=== PATIENT | male | born 1935 | race Caucasian/White ===

== ENCOUNTER 2021-02-01 18:37 | Emergency (ER) | payer OTHER ==
[~2021-02-01] VITALS: Ht 188 cm; Wt 81.7 kg
--- NOTE | ~2021-02-01 | EMS ---
[address] [address] EMS Patient Care Report Name: FELICIA BARRIOS Room #: DEP Bailey#: [id number] Admission: 02/01/21 Attend Phys: Discharge: 02/01/21 Date of : 35 Report #: [id number] THIS REPORT FOR: //name// Report Transmitted: 02/03/2021 22:56 EMS Care Summary [facility] MED-ACT Incident [id number] @ 02/01/2021 17:50 Incident Location [facility] [place] [address] Patient SOPHIE DUARTE Male, 83 Years 1937-03-16 Patient Address [address] [place] [address] Patient History Other, Patient Allergies No known allergies, Chief Complaint Cardiac arrest Disposition Transported No Lights/[place] Dispatch Reason Choking Transported To [facility] Narrative Dispatched to local restaurant on a choking. During response dispatched advised that this was now a cardiac arrest. Upon arrival pt found lying on floor with CPR in progress. HPI; Family and friends report that pt went unresponsive while at dinner and they believed he was choking and attempted abdominal thrusts without success. [address] [address] EMS Patient Care Report Name: FELICIA BARRIOS [facility] [id number] Admission: 02/01/21 Attend Phys: Discharge: 02/01/21 Date of : 35 Report #: [id number] Bystander CPR was started prior to our arrival and continued by MENDY and first responders. PRIMARY; Unresponsive, apneic and pulseless. SECONDARY; THROAT; Clear. No food found in oral cavity. TREATMENT; CPR continued and pt was ventilated with BVM. IV and igel was placed. After iGel it was noted a considerable amount of blood was in the throat and mouth and continuous suctions with big stick was used next to iGel. ETCO2 was attempted and one reading of 2 was obtained. Trouble shooting did not find reason for no reading. Lung sounds present to right side upper and lower. Chest rise present and no gastric sound heard on ventilations. Epi given per protocol as listed in flow chart. CPR changed to mechanical device. TRANSPORT; Decision made to transport due to location of patient. Pt lifted to stretcher and secured with all straps. Pt transported without change in condition and released to ED staff in room 12. Initial Vitals @18:01 @18:90EeCN8: 2, @17:57 @17:59 @18:18 @18:17P: 51, @18:27 @18:11WiSQ1: 0, @18:15 @PTAP: 0,GCS: 3, @18:31P: 0,R: 0,GCS: 3, Assessments @17:55MENTAL:Unresponsive,SKIN:Cyanotic,Pale,HEENT:LUNG SOUNDS:ABDOMEN:PELVIS//GI:EXTREMITIES:PULSE:NEURO: Impression Cardiac arrest Procedures @18:22Epinephrine 1:10 - 1 Milligrams (mg) - Intravenous (IV)Response: Unchanged@18:01Epinephrine 1:10 - 1 Milligrams (mg) - Intravenous (IV)Response: Unchanged@18:06Epinephrine 1:10 - 1 Milligrams (mg) - Intravenous (IV)Response: Unchanged@17:56Normal Saline (.9% NaCl) 400cc (18 ga) Site: Antecubital-LeftResponse: UnchangedSucceeded@17:57Epinephrine 1:10 - 1 [facility] [address] [place] [address] EMS Patient Care Report Name: FELICIA BARRIOS Room #: [facility] Bailey#: [id number] Admission: 02/01/21 Attend Phys: Discharge: 02/01/21 Date of : 35 Report #: [id number] Milligrams (mg) - Intravenous (IV)Response: Unchanged@18:15Epinephrine 1:10 - 1 Milligrams (mg) - Intravenous (IV)Response: Unchanged@PTAResponse: Unchanged@18:10Epinephrine 1:10 - 1 Milligrams (mg) - Intravenous (IV)Response: Unchanged@18:27Epinephrine 1:10 - 1 Milligrams (mg) - Intravenous (IV)Response: Unchanged@PTAOxygen FlowRate: 15 Device: Bag Valve Mask (BVM) Response: UnchangedSucceeded@17:56iGEL Complications: None,Response: UnchangedSucceeded@17:58Suction Response: UnchangedSucceeded@18:16Response: UnchangedSucceeded Timeline PHOTOGRAPHIC MACHINE OPERATOR,Response: Unchanged PHOTOGRAPHIC MACHINE OPERATOR,Oxygen FlowRate: 15 Device: Bag Valve Mask (BVM) Response: UnchangedSucceeded, PHOTOGRAPHIC MACHINE OPERATOR,BP: / M,PULSE: 0,RR: R,SPO2: Ox,ETCO2: ,BG: ,PAIN: ,GCS: 3, 17:48,Call Received 17:48,Psap Call 17:50,Dispatched 17:50,En Route 17:53,On Scene 17:54,At Patient 17:56,iGEL Complications: None,,Response: UnchangedSucceeded, 17:56,Normal Saline (.9% NaCl) 400cc 18 ga Site: Antecubital-Left,Response: UnchangedSucceeded, 17:57,BP: / M,PULSE: ,RR: R,SPO2: Ox,ETCO2: ,BG: ,PAIN: ,GCS: , 17:57,Epinephrine 1:10 - 1 Milligrams (mg) - Intravenous (IV),Response: Unchanged 17:58,Suction Response: UnchangedSucceeded, 17:59,BP: / M,PULSE: ,RR: R,SPO2: Ox,ETCO2: ,BG: ,PAIN: ,GCS: , 18:01,Epinephrine 1:10 - 1 Milligrams (mg) - Intravenous (IV),Response: Unchanged 18:01,BP: / M,PULSE: ,RR: R,SPO2: Ox,ETCO2: ,BG: ,PAIN: ,GCS: , 18:06,Epinephrine 1:10 - 1 Milligrams (mg) - Intravenous (IV),Response: Unchanged 18:06,BP: / M,PULSE: ,RR: R,SPO2: Ox,ETCO2: 2 ,BG: ,PAIN: ,GCS: , 18:08,BP: / M,PULSE: ,RR: R,SPO2: Ox,ETCO2: 0 ,BG: ,PAIN: ,GCS: , 18:10,Epinephrine 1:10 - 1 Milligrams (mg) - Intravenous (IV),Response: Unchanged 18:15,Epinephrine 1:10 - 1 Milligrams (mg) - Intravenous (IV),Response: Unchanged 18:15,BP: / M,PULSE: ,RR: R,SPO2: Ox,ETCO2: ,BG: ,PAIN: ,GCS: , 18:16,Response: UnchangedSucceeded, 18:17,BP: / M,PULSE: 51,RR: R,SPO2: Ox,ETCO2: ,BG: ,PAIN: ,GCS: , 18:18,BP: / M,PULSE: ,RR: R,SPO2: Ox,ETCO2: ,BG: ,PAIN: ,GCS: , 18:22,Epinephrine 1:10 - 1 Milligrams (mg) - Intravenous (IV),Response: Unchanged 18:23,Depart Scene [facility] [address] [place] [address] EMS Patient Care Report Name: FELICIA BARRIOS Room #: DEP [facility]#: [id number] Admission: 02/01/21 Attend Phys: Discharge: 02/01/21 Date of : 35 Report #: [id number] 18:27,BP: / M,PULSE: ,RR: R,SPO2: Ox,ETCO2: ,BG: ,PAIN: ,GCS: , 18:27,Epinephrine 1:10 - 1 Milligrams (mg) - Intravenous (IV),Response: Unchanged 18:31,BP: / M,PULSE: 0,RR: 0 R,SPO2: Ox,ETCO2: ,BG: ,PAIN: ,GCS: 3, 18:32,At Destination 19:17,Call Closed Disclaimer v1.1 Copyright 2020 [employer] This EMS Care Summary contains data elements from the applicable legal record (which may be displayed differently). It is designed to provide pertinent information for the following purposes: continuity of care, clinical quality, and state data reporting. The complete legal record is available to ED staff and administrators of the receiving hospital in [facility]'s Patient Tracker. All data is provided "as is."
--- NOTE | ~2021-02-01 | EMS ---
[address] [address] EMS Patient Care Report Name: FELICIA BARRIOS Room #: REG Bailey#: [id number] Admission: 02/01/21 Attend Phys: Discharge: Date of : 35 Report #: [id number] THIS REPORT FOR: //name// Report Transmitted: 02/01/2021 22:12 EMS Care Summary [facility] MED-ACT Incident [id number] @ 02/01/2021 17:50 Incident Location [address] [place] [address] Patient FELICIA BARRIOS Male, 83 Years 1937-03-16 Patient Address [facility]. [address] [place] [address] Patient History Other, Patient Allergies No known allergies, Chief Complaint Cardiac arrest Disposition Transported No Lights/[place] Dispatch Reason Choking Transported To [facility] Narrative Dispatched to local restaurant on a choking. During response dispatched advised that this was now a cardiac arrest. Upon arrival pt found lying on floor with CPR in progress. HPI; Family and friends report that pt went unresponsive while at dinner and they believed he was choking and attempted abdominal thrusts without success. [address] [address] EMS Patient Care Report Name: FELICIA BARRIOS Room #: REG [facility].#: [id number] Admission: 02/01/21 Attend Phys: Discharge: Date of : 35 Report #: [id number] Bystander CPR was started prior to our arrival and continued by MENDY and first responders. PRIMARY; Unresponsive, apneic and pulseless. SECONDARY; THROAT; Clear. No food found in oral cavity. TREATMENT; CPR continued and pt was ventilated with BVM. IV and igel was placed. After iGel it was noted a considerable amount of blood was in the throat and mouth and continuous suctions with big stick was used next to iGel. ETCO2 was attempted and one reading of 2 was obtained. Trouble shooting did not find reason for no reading. Lung sounds present to right side upper and lower. Chest rise present and no gastric sound heard on ventilations. Epi given per protocol as listed in flow chart. CPR changed to mechanical device. TRANSPORT; Decision made to transport due to location of patient. Pt lifted to stretcher and secured with all straps. Pt transported without change in condition and released to ED staff in room 12. Initial Vitals @18:01 @18:91OpYX4: 2, @17:57 @17:59 @18:18 @18:17P: 51, @18:27 @18:10IrUQ7: 0, @18:15 @PTAP: 0,GCS: 3, @18:31P: 0,R: 0,GCS: 3, Assessments @17:55MENTAL:Unresponsive,SKIN:Cyanotic,Pale,HEENT:LUNG SOUNDS:ABDOMEN:PELVIS//GI:EXTREMITIES:PULSE:NEURO: Impression Cardiac arrest Procedures @18:22Epinephrine 1:10 - 1 Milligrams (mg) - Intravenous (IV)Response: Unchanged@18:01Epinephrine 1:10 - 1 Milligrams (mg) - Intravenous (IV)Response: Unchanged@18:06Epinephrine 1:10 - 1 Milligrams (mg) - Intravenous (IV)Response: Unchanged@17:56Normal Saline (.9% NaCl) 400cc (18 ga) Site: Antecubital-LeftResponse: UnchangedSucceeded@17:57Epinephrine 1:10 - [address] [address] EMS Patient Care Report Name: FELICIA BARRIOS [id number] Admission: 02/01/21 Attend Phys: Discharge: Date of : 35 Report #: [id number] Milligrams (mg) - Intravenous (IV)Response: Unchanged@18:15Epinephrine 1:10 - 1 Milligrams (mg) - Intravenous (IV)Response: Unchanged@PTAResponse: Unchanged@18:10Epinephrine 1:10 - 1 Milligrams (mg) - Intravenous (IV)Response: Unchanged@18:27Epinephrine 1:10 - 1 Milligrams (mg) - Intravenous (IV)Response: Unchanged@PTAOxygen FlowRate: 15 Device: Bag Valve Mask (BVM) Response: UnchangedSucceeded@17:56iGEL Complications: None,Response: UnchangedSucceeded@17:58Suction Response: UnchangedSucceeded@18:16Response: UnchangedSucceeded 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,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,Oxygen FlowRate: 15 Device: Bag Valve Mask (BVM) Response: UnchangedSucceeded, [employer] SOFTWARE DEVELOPMENT ENGINEER,BP: / M,PULSE: 0,RR: R,SPO2: Ox,ETCO2: ,BG: ,PAIN: ,GCS: 3, 17:48,Call Received 17:48,Psap Call 17:50,Dispatched 17:50,En Route 17:53,On Scene 17:54,At Patient 17:56,iGEL Complications: None,,Response: UnchangedSucceeded, 17:56,Normal Saline (.9% NaCl) 400cc 18 ga Site: Antecubital-Left,Response: UnchangedSucceeded, 17:57,BP: / M,PULSE: ,RR: R,SPO2: Ox,ETCO2: ,BG: ,PAIN: ,GCS: , 17:57,Epinephrine 1:10 - 1 Milligrams (mg) - Intravenous (IV),Response: Unchanged 17:58,Suction Response: UnchangedSucceeded, 17:59,BP: / M,PULSE: ,RR: R,SPO2: Ox,ETCO2: ,BG: ,PAIN: ,GCS: , 18:01,Epinephrine 1:10 - 1 Milligrams (mg) - Intravenous (IV),Response: Unchanged 18:01,BP: / M,PULSE: ,RR: R,SPO2: Ox,ETCO2: ,BG: ,PAIN: ,GCS: , 18:06,Epinephrine 1:10 - 1 Milligrams (mg) - Intravenous (IV),Response: Unchanged 18:06,BP: / M,PULSE: ,RR: R,SPO2: Ox,ETCO2: 2 ,BG: ,PAIN: ,GCS: , 18:08,BP: / M,PULSE: ,RR: R,SPO2: Ox,ETCO2: 0 ,BG: ,PAIN: ,GCS: , 18:10,Epinephrine 1:10 - 1 Milligrams (mg) - Intravenous (IV),Response: Unchanged 18:15,Epinephrine 1:10 - 1 Milligrams (mg) - Intravenous (IV),Response: Unchanged 18:15,BP: / M,PULSE: ,RR: R,SPO2: Ox,ETCO2: ,BG: ,PAIN: ,GCS: , 18:16,Response: UnchangedSucceeded, 18:17,BP: / M,PULSE: 51,RR: R,SPO2: Ox,ETCO2: ,BG: ,PAIN: ,GCS: , 18:18,BP: / M,PULSE: ,RR: R,SPO2: Ox,ETCO2: ,BG: ,PAIN: ,GCS: , 18:22,Epinephrine 1:10 - 1 Milligrams (mg) - Intravenous (IV),Response: Unchanged 18:23,Depart Scene [address] [address] EMS Patient Care Report Name: FELICIA BARRIOS Room #: REG [facility].#: [id number] Admission: 02/01/21 Attend Phys: Discharge: Date of : 35 Report #: [id number] 18:27,BP: / M,PULSE: ,RR: R,SPO2: Ox,ETCO2: ,BG: ,PAIN: ,GCS: , 18:27,Epinephrine 1:10 - 1 Milligrams (mg) - Intravenous (IV),Response: Unchanged 18:31,BP: / M,PULSE: 0,RR: 0 R,SPO2: Ox,ETCO2: ,BG: ,PAIN: ,GCS: 3, 18:32,At Destination 19:17,Call Closed Disclaimer v1.1 Copyright 2020 [employer] This EMS Care Summary contains data elements from the applicable legal record (which may be displayed differently). It is designed to provide pertinent information for the following purposes: continuity of care, clinical quality, and state data reporting. The complete legal record is available to ED staff and administrators of the receiving hospital in [facility]'s Patient Tracker. All data is provided "as is."
[2021-02-01 19:20] LABS: HEMOGLOBIN 8.4 gm/dL (14.0-18.0); MCH 27.4 pg (26.0-34.0); MCHC 30.1 g/dL (28.0-37.0); MCV 91.1 fL (80.0-100.0); PLATELET COUNT 174 thou/uL (150-400); RBC 3.08 mil/uL (4.50-6.00); RDW 19.4 % (10.5-14.5); WBC 7.1 thou/uL (4.0-11.0)
[2021-02-01 19:27] LABS: APTT 55.8 Seconds (24.5-32.8); INR 2.51; PROTIME 26.2 Seconds (10.5-12.1)
[2021-02-01 20:07] LABS: ABSOLUTE NEUTROPHILS 3.3 thou/uL (1.4-8.2); MYELOCYTES 1 %
[2021-02-01 20:08] LABS: ANISOCYTOSIS 2+; BURR CELLS 3+
--- NOTE | 2021-02-03 07:21 | EKG ---
[address] [place] [address] ELECTROCARDIOGRAM REPORT Name: SOPHIEMARY LOUFEILCIA M Room #: [facility]#: [id number] Admission: 02/01/21 Attend Phys: Discharge: 02/01/21 Date of : 35 Report #: [id number] [facility] ED Test Date: 2021-02-01 Test Time: 18:53:36 Pat Name: FELICIA BARRIOS Department: Room: Gender: M Gravity Flow Irrigator: UNKNOWN : 1935 Requested By: Willard Monahan Order Number: [id number] MD: Med Warner Measurements Intervals Vincent Rate: 92 P: RI: QRS: 124 QRSD: 186 T: -73 QT: 411 QTc: 509 Interpretive Statements Atrial fibrillation Ventricular premature complex Right bundle branch block ST depr, consider ischemia, inferior leads No previous ECG available for comparison Electronically Signed On 02-03-2021 7:21:36 CDT by Med Warner [email or web address] <ELECTRONICALLY SIGNED> By: Med Warner MD, [facility] 02/03/21 0721 185 1853 Med Warner MD, FACC /EPI
== END 2021-02-01 19:14 ==
LOC: ER 18:37 → EDBD 18:37 → ER 19:14
PROVIDERS: Emergency Medicine
DX: I46.9 Cardiac arrest, cause unspecified (principal); Z85.118 Personal history of other malignant neoplasm of bronchus and lung